=== PATIENT | male | born 1975 | race Caucasian/White ===

== ENCOUNTER 2018-02-15 11:15 | Emergency (ER) | payer SELFPAY ==
[~2018-02-15] VITALS: Ht 175.3 cm; Wt 102.1 kg
[2018-02-15 11:58] VITALS: BP 141/79
--- NOTE | 2018-02-15 13:01 | RAD ---
Left lower extremity venous doppler ultrasound History: Left leg pain Comparison: None Findings: Multiple grayscale, color, and duplex spectral analysis sonographic images were acquired of the left lower extremity veins to evaluate for the presence of DVT. There is normal phasicity. Normal compression, color-flow, and augmentation is demonstrated from the left common femoral to the popliteal veins. There is normal color flow of the proximal profunda femoris vein. There is normal color flow of segments of the calf veins. Impression: 1. There is no evidence of deep venous thrombosis from the left common femoral to popliteal veins. Electronically signed by: Moy Cordon MD (02/15/2018 12:56 PM) [facility]
--- NOTE | 2018-02-15 13:02 | RAD ---
EXAM: Left foot, 3 views. HISTORY: Sore over first metatarsal. COMPARISON: None. FINDINGS: 3 views of the left foot are obtained. There is no fracture, dislocation or subluxation. There is a tiny suspected ossicle or radiodense foreign body within the posterior ankle soft tissues. There is no radiographic evidence of osteomyelitis. IMPRESSION: 1. No acute osseous finding. 2. No radiographic evidence of osteomyelitis. Electronically signed by: Zoraida Almodovar MD (02/15/2018 12:58 PM) [facility]
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
[2018-02-15] MEDS ORDERED: DICL50TA4 PO (13:19)
== END 2018-02-15 14:28 | disposition home or self-care (01) ==
LOC: ER 11:15
DX: M79.672 Pain in left foot (principal); F17.200 Nicotine dependence, unspecified, uncomplicated; F10.20 Alcohol dependence, uncomplicated; Y90.9 Presence of alcohol in blood, level not specified
CPT/HCPCS: 73630; 93971; 99284-25

== ENCOUNTER 2020-01-31 13:29 | Emergency (ER) | payer SELFPAY ==
[~2020-01-31] VITALS: Ht 175.3 cm; Wt 102.0 kg
[~2020-01-31 13:29] MED LIST: DICL50TA4 PO
[2020-01-31 14:35] VITALS: BP 141/93
[2020-01-31] MEDS ORDERED: ORPHENADRINE CITRATE 60 MG/2 ML VIAL. IM ONE (16:30)
[2020-01-31] MEDS ORDERED: HYDROcodone/APAP 5/325MG 1 TAB TABLET PO ONE (16:30)
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
[2020-01-31] MEDS ORDERED: ORPH100T PO (17:30)
[2020-01-31] MEDS ORDERED: IBUP-1007 PO (17:30)
[2020-01-31] MEDS ORDERED: HYDR-3164 PO (17:30)
== END 2020-01-31 18:00 | disposition home or self-care (01) ==
LOC: ER 13:29
DX: G89.11 Acute pain due to trauma (principal); R07.81 Pleurodynia; R21 Rash and other nonspecific skin eruption; R06.02 Shortness of breath; F17.200 Nicotine dependence, unspecified, uncomplicated; F12.90 Cannabis use, unspecified, uncomplicated; F10.10 Alcohol abuse, uncomplicated; Z98.890 Other specified postprocedural states; V89.2XXA Person injured in unspecified motor-vehicle accident, traffic, initial encounter; Y93.89 Activity, other specified; Y92.413 State road as the place of occurrence of the external cause; Y99.8 Other external cause status
CPT/HCPCS: 71250; 74176; 96372; 99285; J2360